=== PATIENT | female | born 1960 | race Caucasian/White ===

== ENCOUNTER 2021-05-25 17:50 | Inpatient (IN) | payer OTHER ==
[~2021-05-25] VITALS: Ht 167.6 cm; Wt 59.0 kg
[2021-05-25 18:09] VITALS: BP 128/76
[2021-05-25 20:21] LABS: URINE BILIRUBIN NEGATIVE (Negative); URINE BLOOD NEGATIVE (Negative); URINE CLARITY SL CLOUDY; URINE COLOR YELLOW; URINE GLUCOSE-RANDOM* NEGATIVE (Negative); URINE KETONES 1+ (Negative); URINE LEUKOCYTES-REFLEX NEGATIVE (Negative); URINE NITRITE-REFLEX NEGATIVE (Negative); URINE PROTEIN (DIPSTICK) NEGATIVE (Negative); URINE SPECIFIC GRAVITY >= 1.030 (1.005-1.035); URINE UROBILINOGEN 0.2 E.U./dl (0.2-1.0)
[2021-05-25 20:27] LABS: ABSOLUTE NEUTROPHILS 4.4 thou/uL (1.4-8.2); BASOPHILS 1.2 % (0.0-2.0); EOSINOPHILS 1.2 % (0.0-3.0); HEMATOCRIT 38.7 % (37.0-47.0); HEMOGLOBIN 12.8 gm/dL (12.0-15.0); LYMPHOCYTES 35.5 % (24.0-44.0); MCH 29.8 pg (26.0-34.0); MCHC 33.1 g/dL (28.0-37.0); MCV 89.9 fL (80.0-100.0); MONOCYTES 10.1 % (1.0-8.0); PLATELET COUNT 385 thou/uL (150-400); RDW 14.1 % (10.5-14.5); WBC 8.5 thou/uL (4.0-11.0)
[2021-05-25 20:35] LABS: CALCIUM 9.1 mg/dL (8.5-10.1); CREATININE 0.7 mg/dL (0.6-1.0); POTASSIUM 3.9 mmol/L (3.5-5.1)
[2021-05-25 20:41] LABS: ALBUMIN 3.6 g/dL (3.4-5.0); TOTAL BILIRUBIN 0.3 mg/dL (0.2-1.0)
[2021-05-25 21:33] VITALS: BP 125/62
[2021-05-26 06:00] LABS: HEMOGLOBIN 11.4 gm/dL (12.0-15.0); MCH 30.5 pg (26.0-34.0); MCHC 33.6 g/dL (28.0-37.0); MCV 90.8 fL (80.0-100.0); RBC 3.74 mil/uL (4.20-5.00); WBC 5.4 thou/uL (4.0-11.0)
[2021-05-26 07:17] LABS: CALCIUM 8.4 mg/dL (8.5-10.1); CREATININE 0.7 mg/dL (0.6-1.0); POTASSIUM 4.4 mmol/L (3.5-5.1)
--- NOTE | 2021-05-26 07:55 | EKG ---
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 : 1960 Requested By: Feli Zamora Order Number: [id number] MD: Jamie Padilla Measurements Intervals [place] Rate: 81 P: 62 [place]: 142 QRS: -69 QRSD: 89 T: 24 QT: 354 QTc: 411 Interpretive Statements Sinus rhythm Left anterior fascicular block Abnormal R-wave progression, early transition No previous ECG available for comparison Electronically Signed On 05-26-2021 7:55:36 [employer] by Jamie Padilla [email or web address] <ELECTRONICALLY SIGNED> By: Jamie Padilla MD, [facility] 05/26/21 0755 06 06 Jamie Padilla MD, FACC /EPI
--- NOTE | 2021-05-27 02:34 | NUR ---
PT ADMITTED TO THE UNIT AT AROUND 2000 HRS. S/P LEFT HIP ORIF. ALERT AND ORIENTED.EATING WELL W/O ANY NAUSEA OR VOMITING. JULIO WITH GOOD U/O. SCDS AND TEDS WELLL KHTH IN PLACE. WAS ABLE TO GET UP TO THE BSC-WBAT.PASSING FLATUS, NO BM, GIVEN PRN S[place]OT X 1.LEFT FOOT WITH GOOD CSM. AQUACEL DRSG TO HIP IS C/D/I, ICE ANOOP IN PLACE. ROOM AIR, SLIGHT PRODUCTIVE COUGH, PT ENCOURAGED TO COUGH AND DEEP BREATH W/A. AFEBRILE.CALL LIGHT WITHIN REACH.
[2021-05-27 04:33] VITALS: BP 107/56
[2021-05-27 06:29] LABS: MCH 30.2 pg (26.0-34.0); MCHC 33.5 g/dL (28.0-37.0); MCV 90.4 fL (80.0-100.0); RBC 3.1 mil/uL (4.20-5.00); RDW 13.9 % (10.5-14.5); WBC 13.7 thou/uL (4.0-11.0)
[2021-05-27 06:41] LABS: HEMOGLOBIN 9.4 gm/dL (12.0-15.0)
[2021-05-27 06:46] LABS: CALCIUM 7.9 mg/dL (8.5-10.1); CREATININE 0.7 mg/dL (0.6-1.0)
[2021-05-27 08:13] VITALS: BP 105/58
--- NOTE | 2021-05-27 09:30 | NUR ---
61-year-old female. The patient was sent to the ED by Dr. Odell at [facility]. She had a fall 3 weeks ago but did not go to ED after the fall. DX; femoral neck fX. States she followed up with her pain management doctor but did not have the injury evaluated elsewhere. The patient reports swelling to her left lower extremity. Patient states she has had 3 falls since the 1st one back in April 2021 and she was crawling and using furniture to walk with at home. Has crutches. Will need fww and ok per matthew if walker request was sent to [facility]. Education provided, ok for [facility] but she does not think she will need it for long. She has a family friend that is off work 2 x week and can driver manager her places. She cannot drive related to her poor vision. Goes to outpt pain management. PCP dr Shellie YAP. About 13 stairs at home. No rehab in the past. Will cont following as needed.
--- NOTE | 2021-05-27 10:00 | NUR ---
ASSUMED PT CARE THIS AM. PT IS ALERT & ORIENTED X4. PT HAS IV SITE ON RAC. PT IS UP WITH ASSIST X1 TO THE BATHROOM. PHYSICAL THERAPY WAS WORKING PT THIS AM. PER PHYSICAL THERAPY DID WELL. PT IS ON ROOM AIR. REMOVED JULIO CATH THIS AM. LAST BM WAS TODAY. PT HAS [facility] THIGH HIGH BILATERAL, SCD, AQUACEL DRESSING. GIVEN PAIN MEDICATION PRIOR WORKING WITH PHYSICAL THERAPY THIS AM. PT TOLERATED DIET WELL AND MEDICATION. PT IS CURRENTLY SITTING ON THE CHAIR WITH CALL LIGHT IN REACH. WILL CONTINUE TO MONITOR PT. FOLLOW POC.
[2021-05-27 13:45] VITALS: BP 105/58
[2021-05-27 16:59] VITALS: BP 102/44
[2021-05-27 19:24] VITALS: BP 110/60
--- NOTE | 2021-05-28 02:00 | NUR ---
PT WALKING TTO THE BATHROOM WELL WITH ESTHER LAWRENCE. LEFT HIP WITH AQUACEL, ICE IN PLACE. PAIN MANAGED BY NORCO.SHE DENIES FURTHER NEEDS. FALL PREC IN PLACE, CLL LIGHT WITHIN REACH.
[2021-05-28] MEDS ORDERED: NORCO7.5 PO (04:42)
[2021-05-28] MEDS ORDERED: ALENDRONATE SOD70 MG (04:44)
[2021-05-28] MEDS ORDERED: ZINC50 M2 PO (04:45)
[2021-05-28] MEDS ORDERED: ZINC50 M3 PO (04:47)
[2021-05-28] MEDS ORDERED: K2 PLUS D3 TAB1 EACH PO (04:47)
[2021-05-28 08:00] VITALS: BP 101/64
--- NOTE | 2021-05-28 09:00 | NUR ---
Cm notified that matthew requested a ride home today. [facility] to be [facility] for wheel chair van home today. FWW delivered from [facility] and becka macdonald.
[2021-05-28] MEDS ORDERED: CELEBREX 200 M200 M1 PO (10:43)
[2021-05-28] MEDS ORDERED: ASPIRIN EC325 M1 PO (10:43)
[2021-05-28 13:39] VITALS: BP 105/58
--- NOTE | 2021-05-28 15:30 | NUR ---
PT DOING WELL. WORKED W/ THERAPY AND AMBULATING WELL W/ WALKER. DSNG DRY. DISCHARGING AT THIS TIME PER [facility] W/C Y[facility]O. WILL HAVE HOME HEALTH NURSING AND THERAPY.
== END 2021-05-28 18:29 | disposition home health service (06) | DRG 522 ==
LOC: ER 17:50 → 4S 21:09 → EROBS 21:09 → 4S 05-26 13:39
PROVIDERS: Emergency Medicine; Nurse Practitioner Family; ADMIT Hospitalist; ATTEND Hospitalist
PROC: 0SRB06A Replacement of Left Hip Joint with Oxidized Zirconium on Polyethylene Synthetic Substitute, Uncemented, Open Approach (ICD-10-PCS; principal; 2021-05-26)
DX: S72.042A Displaced fracture of base of neck of left femur, initial encounter for closed fracture (principal); M81.0 Age-related osteoporosis without current pathological fracture; F17.210 Nicotine dependence, cigarettes, uncomplicated; Z20.822 Contact with and (suspected) exposure to COVID-19; R22.42 Localized swelling, mass and lump, left lower limb; R29.6 Repeated falls; Z88.8 Allergy status to other drugs, medicaments and biological substances; G89.4 Chronic pain syndrome; Z91.018 Allergy to other foods; Z91.010 Allergy to peanuts; Z98.42 Cataract extraction status, left eye; Z98.41 Cataract extraction status, right eye; Z83.3 Family history of diabetes mellitus; Z80.8 Family history of malignant neoplasm of other organs or systems; Z79.82 Long term (current) use of aspirin; Z79.899 Other long term (current) drug therapy; W01.0XXA Fall on same level from slipping, tripping and stumbling without subsequent striking against object, initial encounter; Y93.89 Activity, other specified; Y92.89 Other specified places as the place of occurrence of the external cause; Y99.8 Other external cause status
CPT/HCPCS: 10195; 50010; 50101; 50382; 50414; 50855; 52304; 53000; 53078; 56524; 56527; 56528; 57093; 57095; 57103; 58637; 70005